=== PATIENT | male | born 1975 | race Caucasian/White ===

== ENCOUNTER 2023-02-25 11:18 | Emergency (ER) | payer MEDICAID ==
[~2023-02-25] VITALS: Ht 190.5 cm; Wt 85.6 kg
[2023-02-25 13:59] LABS: BASOPHILS % (AUTO) 0.2 % (0-1); EOSINOPHILS % (AUTO) 0.3 % (0-6); HEMATOCRIT 48.1 % (42.0-52.0); HEMOGLOBIN 16.1 g/dl (14.0-17.9); LYMPHOCYTES # (AUTO) 1.9 X10'3 (1.1-4.8); LYMPHOCYTES % (AUTO) 16.5 % (21-51); MEAN CORPUSCULAR HGB CONC 33.6 g/dL (33.0-36.5); MEAN CORPUSCULAR VOLUME 89.3 FL (78-98); MEAN PLATELET VOLUME 8.4 FL (7.4-10.4); MONOCYTES # (AUTO) 1.1 X10'3 (0-0.9); MONOCYTES % (AUTO) 9.4 % (2-12); NEUTROPHILS # (AUTO) 8.3 X10'3 (1.8-7.7); NEUTROPHILS % (AUTO) 73.6 % (42-75); PLATELET COUNT 284 X10'3 (140-440); RED BLOOD COUNT 5.38 X10'6 (4.70-6.10); RED CELL DISTRIBUTION WIDTH 13.9 % (11.5-14.5); WHITE BLOOD COUNT 11.3 X10'3 (4.5-11.0)
[2023-02-25 14:16] LABS: ALANINE AMINOTRANSFERASE 25 U/L (12-78); ALBUMIN 4.4 G/DL (3.4-5.0); ALBUMIN/GLOBULIN RATIO 1.2 (1.1-1.5); ALKALINE PHOSPHATASE 84 IU/L (46-116); ANION GAP 8 (8-16); ASPARTATE AMINO TRANSFERASE 29 U/L (10-37); BILIRUBIN,TOTAL 0.5 MG/DL (0.1-1.0); BLOOD UREA NITROGEN 17 MG/DL (7-18); CALCIUM 9.7 MG/DL (8.5-10.1); CHLORIDE 103 MMOL/L (99-107); CREATININE 1.42 MG/DL (0.60-1.10); GLUCOSE 94 MG/DL (70-104); POTASSIUM 4.4 MMOL/L (3.5-5.1); SODIUM 141 MMOL/L (135-145); TOTAL CARBON DIOXIDE 30.3 MMOL/L (24-32); eCRCL 77 ML/MIN; eGFR 53 ML/MIN
[2023-02-25] MEDS ORDERED: QUEtiapine 25mg tablet PO STA (14:54)
[2023-02-25] MEDS: cloNIDine 0.1 mg tablet PO ONE ×2 (14:55→15:10)
[2023-02-25] MEDS ORDERED: LORazepam 1 MG tablet PO ONE (14:55)
[2023-02-25] MEDS ORDERED: quetiapine 100mg tablet PO STA (14:57)
[2023-02-25] MEDS ORDERED: ziprasidone IM 20mg inj **IM only IM ONE (15:50)
[2023-02-25] MEDS ORDERED: normal saline 1000ml 1,000 ML IV ONE (17:30)
[2023-02-25 20:47] LABS: URINE AMPHETAMINE SCREEN POSITIVE (Neg); URINE BARBITUATE SCREEN NEGATIVE (Neg); URINE BENZODIAZEPINES SCREEN NEGATIVE (Neg); URINE CANNABINOID SCREEN NEGATIVE (Neg); URINE COCAINE SCREEN POSITIVE (Neg); URINE METHADONE SCREEN NEGATIVE (Neg); URINE OPIATE SCREEN NEGATIVE (Neg); URINE PHENCYCLIDINE SCREEN NEGATIVE (Neg)
[2023-02-25 21:31] VITALS: BP 122/83; PULSE 80; RESP 17; TEMP 98.2; O2SAT 99
== END 2023-02-25 21:54 | disposition home or self-care (01) ==
LOC: ER 11:20
DX: F15.10 Other stimulant abuse, uncomplicated (principal); Z88.6 Allergy status to analgesic agent; Z79.899 Other long term (current) drug therapy
CPT/HCPCS: 36415; 80053; 80305; 85025; 96372; 99285; J3486; J7030

== ENCOUNTER 2025-02-06 12:40 | Outpatient (CLI) | payer MEDICAID ==
--- NOTE | 2025-02-06 13:51 | RADIOLOGY REPORT ---
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 Sagittal, axial and coronal T1 and T2-weighted images were obtained. FINDINGS:Lumbar vertebrae normal in height, signal intensity and alignment. No Modic type changes . There is lumbarization of the S1 vertebral L1-2 slight loss disc height and signal intensity. Disc bulge effaces the thecal sac and causes slight narrowing neural foramina L2-3 slight loss of disc height and signal intensity. No narrowing of the central canal or neural foramina L3-4 slight loss of disc height and signal intensity 1-2 mm broad-based disc bulge causes slight narrowing of the neural foramina in conjunction with shortened pedicles L4-5 there is a broad-based right paracentral 4 mm disc protrusion effacing the thecal sac. Slight narrowing of the neural foramina by shortened pedicles L5-S1 loss of disc height and signal intensity. Narrowing of the left neural foramen by left lateral disc bulge with effacement of the exiting left L5 nerve root. Cord ends at T12-L1 and is normal in appearance IMPRESSION: At L4-5 there is a broad-based right paracentral disc protrusion effacing the thecal sac At L5-S1 there is severe narrowing of the left neural foramen by left lateral disc bulge or protrusion with effacement of the exiting left L5 nerve root
== END 2025-02-06 23:59 | disposition home or self-care (01) ==
LOC: MRI02 12:40
PROVIDERS: ATTEND Nurse Practitioner
DX: M51.17 Intervertebral disc disorders with radiculopathy, lumbosacral region (principal); M48.07 Spinal stenosis, lumbosacral region
CPT/HCPCS: 72148